=== PATIENT | female | born 1930 | race Caucasian/White ===

== ENCOUNTER 2017-02-23 16:11 | Emergency (ER) | payer MEDICARE, OTHER ==
[~2017-02-23] VITALS: Ht 152.4 cm; Wt 42.6 kg
[2017-02-23] MEDS ORDERED: CITA40TA22 PO (16:28)
[2017-02-23] MEDS ORDERED: CLON0.5T PO (16:28)
[2017-02-23] MEDS ORDERED: MIRA25TA PO (16:31)
[2017-02-23] MEDS ORDERED: HYDROCODONE/APAP 5-325MG TABLET PO ONE (16:45)
[2017-02-23] MEDS ORDERED: HYDROCODONE/APAP 5-325MG TABLET ONE (16:50)
--- NOTE | 2017-02-23 17:27 | NUR ---
Patient discharged to home in stable conditon. Written and verbal after care instructions given. Patient verbalizes understanding of instructions.pt accompanied by fmily members
== END 2017-02-23 17:29 | disposition home or self-care (01) ==
LOC: ER 16:12
DX: S60.212A Contusion of left wrist, initial encounter (principal); S00.81XA Abrasion of other part of head, initial encounter; F32.9 Major depressive disorder, single episode, unspecified; M54.5 Low back pain; W01.0XXA Fall on same level from slipping, tripping and stumbling without subsequent striking against object, initial encounter; Y93.89 Activity, other specified; Y99.8 Other external cause status; Y92.89 Other specified places as the place of occurrence of the external cause
CPT/HCPCS: 72110; 73110; 73502; A4663